=== PATIENT | female | born 1995 | race African-American/Black ===

== ENCOUNTER 2018-04-18 13:11 | Emergency (ER) | payer MEDICARE, OTHER ==
[~2018-04-18] VITALS: Ht 152.4 cm; Wt 60.0 kg
[2018-04-18] MEDS ORDERED: SODIUM CHLORIDE 0.9% 1,000 ML IV ONE (14:19)
[2018-04-18 14:50] VITALS: BP 133/75
[2018-04-18 14:54] LABS: BASOPHILS % 0.4 % (0.0-2.0); EOSINOPHILS % 2.7 % (0.0-5.0); HEMATOCRIT. 37.5 % (36.0-48.0); HEMOGLOBIN. 12.2 g/dL (12.0-16.0); LYMPHOCYTES % 13.7 % (20.0-50.0); MEAN CORPUSCULAR HEMOGLOBIN 28.5 pg (28.0-32.0); MEAN CORPUSCULAR VOLUME 87.5 fL (81.0-99.0); MEAN PLATELET VOLUME 9.5 fl (7.4-10.4); MONOCYTES % 6.5 % (2.0-8.0); NEUTROPHILS % 76.7 % (40.0-76.0); PLATELET 217 x1000/uL (130-400); RED BLOOD CELL COUNT 4.29 mill/uL (4.2-5.4)
[2018-04-18 14:56] LABS: CHLORIDE 100 mEq/L (98-107)
[2018-04-18 16:08] LABS: HCG SCREEN NEGATIVE
== END 2018-04-18 17:07 | disposition home or self-care (01) ==
LOC: ER 13:11
DX: G40.909 Epilepsy, unspecified, not intractable, without status epilepticus (principal); R55 Syncope and collapse; Q05.9 Spina bifida, unspecified; Z88.5 Allergy status to narcotic agent
CPT/HCPCS: 36415; 80053; 84703; 85025; 93005; 96360; 99283; J7030